=== PATIENT | female | born 2000 | race American Indian/Alaskan Native ===

== ENCOUNTER 2021-07-24 00:15 | Emergency (ER) | payer OTHER ==
[2021-07-24 01:20] VITALS: BP 144/90
[2021-07-24 01:43] LABS: Basophils # (Auto) 0.1 K/mm3 (0.0-0.1); Basophils % (Auto) 0.5 % (0.0-1.8); Eosinophils % (Auto) 0.4 % (0.0-4.3); Hemoglobin 12.4 gm/dl (10.1-14.3); Lymphocytes # (Auto) 3.9 K/mm3 (1.2-5.4); Lymphocytes % (Auto) 33.4 % (13.4-35.0); Mean Corpuscular HGB Conc 34 % (30-34); Mean Corpuscular Volume 88 fl (79-97); Monocytes # (Auto) 1.2 K/mm3 (0.0-0.8); Monocytes % (Auto) 10.3 % (0.0-7.3); Platelet Count 242 K/mm3 (140-440); Red Cell Distribution Width 13.2 % (13.2-15.2)
[2021-07-24 02:02] LABS: Alanine Aminotransferase 9 units/L (7-56); Albumin 4.2 g/dL (3.9-5); Blood Urea Nitrogen 11 mg/dL (7-17); Calcium 9.9 mg/dL (8.4-10.2); Hemolysis Index 6
[2021-07-24 02:31] LABS: BUN/Creatinine Ratio 18
[2021-07-24] MEDS ORDERED: ACETAMINOPHEN 325 MG TAB PO ONE (05:15)
== END 2021-07-24 19:00 | disposition left against medical advice (07) ==
LOC: ED 00:15
DX: R10.9 Unspecified abdominal pain (principal); K13.0 Diseases of lips; Z53.21 Procedure and treatment not carried out due to patient leaving prior to being seen by health care provider
CPT/HCPCS: 36415; 80053; 84702; 85025